=== PATIENT | female | born 1995 | race Hispanic/Latino ===

== ENCOUNTER 2018-06-24 17:51 | Emergency (ER) | payer MEDICAID ==
[2018-06-24] MEDS ORDERED: L.E.T. GEL 4%/0.5%/0.18% 3ML 3 ML/SYR SYG TP ONE (18:33)
== END 2018-06-24 20:00 | disposition home or self-care (01) ==
LOC: EDH 17:51
DX: S01.81XA Laceration without foreign body of other part of head, initial encounter (principal); Z88.8 Allergy status to other drugs, medicaments and biological substances; V37.5XXA Driver of three-wheeled motor vehicle injured in collision with fixed or stationary object in traffic accident, initial encounter; Y93.89 Activity, other specified; Y92.410 Unspecified street and highway as the place of occurrence of the external cause; Y99.8 Other external cause status
CPT/HCPCS: 12011

== ENCOUNTER 2018-07-02 17:22 | Emergency (ER) | payer MEDICAID | END 2018-07-02 17:44 | disposition home or self-care (01) | LOC: EDH 17:22 | DX: S01.81XD Laceration without foreign body of other part of head, subsequent encounter (principal); Z88.8 Allergy status to other drugs, medicaments and biological substances; X58.XXXD Exposure to other specified factors, subsequent encounter | CPT/HCPCS: 99281 ==